=== PATIENT | male | born 1985 | race Hispanic/Latino ===

== ENCOUNTER 2019-04-04 20:20 | Emergency (ER) | payer OTHER ==
[~2019-04-04] VITALS: Ht 182.9 cm; Wt 93.0 kg
[2019-04-04] MEDS ORDERED: LORAZEPAM INJ 2 MG/ML VIAL IV ONE ×2 (20:45→21:15)
[2019-04-04] MEDS ORDERED: LORAZEPAM INJ 2 MG/ML VIAL ONE (20:52)
[2019-04-04] MEDS ORDERED: ATIVAN1 MG PO (21:48)
== END 2019-04-04 22:10 | disposition home or self-care (01) ==
LOC: FSED 20:20
DX: R00.2 Palpitations (principal); F45.8 Other somatoform disorders
CPT/HCPCS: 99283; J2060